=== PATIENT | male | born 1990 | race Caucasian/White ===

== ENCOUNTER 2018-06-22 18:54 | Emergency (ER) | payer SELFPAY ==
[~2018-06-22] VITALS: Ht 182.9 cm; Wt 84.8 kg
--- OUTSIDE RECORDS SUMMARY | 2018-06-22 18:57 | XMS REPORT ---
Author PAULINA Garcia Organization [employer] Address Unknown Phone Unavailable Care Team Providers Care Remote Encoding Center Manager Name Role Phone PAULINA KELLEY CP Unavailable Allergies No Known Allergies Problems Problem Type Condition Code Onset Dates Condition Status Assessment Paranoid schizophrenia F20.0 Active Medications Medication Code System Code Instructions Start Date End Date Status Dosage Latuda [facility] [address]-92 40 MG Orally Once a day April 17, 2016 1 tablet with food Paroxetine HCl [facility] [address]-46 20 MG Orally Once a day April 17, 2016 1 tablet in the morning Seroquel [facility] [address]-18 300 MG Orally twice a day April 17, 2016 2 tablets Procedures Procedure Coding System Code Date Office Visit, Est Pt., Level 2 CPT-4 41423 April 17, 2016 Vital Signs Date/Time: April 17, 2016 Cardiac Monitoring Heart Rate 72 bpm Weight 108 lbs Height 72 in BMI 14.65 Index Blood Pressure Diastolic 70 mmHg Blood Pressure Systolic 112 mmHg Results No Known Results Summary Purpose [employer] Submission
--- OUTSIDE RECORDS SUMMARY | 2018-06-22 18:58 | XMS REPORT ---
Author Author PAULINA KELLEY [facility] Address [facility] [place] [address] Care Team Providers Care Hydraulic Chair Assembler Name Role Phone PAULINA KELLEY Unavailable PROBLEMS Type Condition ICD9-CM Code [id number] Code Onset Dates Condition Status SNOMED Code Problem Mood disorder F39 Active [id number] ALLERGIES Unknown Allergies SOCIAL HISTORY No smoking Hx information available PLAN OF CARE VITAL SIGNS MEDICATIONS Medication Instructions Dosage Frequency Start Date End Date Duration Status Seroquel 300 MG Orally twice a day 2 tablets 12h 08 Jul, 2016 Active RESULTS No Results PROCEDURES No Known procedures IMMUNIZATIONS No Known Immunizations
--- OUTSIDE RECORDS SUMMARY | 2018-06-22 18:58 | XMS REPORT ---
Author PAULINA Garcia Organization [employer] Address Unknown Phone Unavailable Care Team Providers Care Aircraft Engine Dismantler Name Role Phone PAULINA KELLEY CP Unavailable Allergies No Known Allergies Problems Problem Type Condition Code Onset Dates Condition Status Assessment Mood disorder F39 Active Problem Mood disorder F39 Active Medications Medication Code System Code Instructions Start Date End Date Status Dosage Seroquel [facility] NAMED [facility] [address]-70 300 MG Orally twice a day Jul 31, 2016 1 tablet at bedtime Latuda [facility] NAMED [facility] [address]-21 40 MG Orally Once a day Jul 31, 2016 1 tablet with food Procedures Procedure Coding System Code Date Office Visit, Est Pt., Level 2 CPT-4 32738 Jul 31, 2016 Vital Signs Date/Time: Jul 31, 2016 Cardiac Monitoring Heart Rate 80- bpm Weight 218 lbs Height 72 in BMI 29.56 Index Blood Pressure Diastolic 80 mmHg Blood Pressure Systolic 138 mmHg Results No Known Results Summary Purpose [employer] Submission
--- OUTSIDE RECORDS SUMMARY | 2018-06-22 18:58 | XMS REPORT ---
Author Author PAULINA KELLEY [facility] Address [facility] [place] [address] Care Team Providers Care Rn Iv Therapy Name Role Phone PAULINA KELLEY Unavailable PROBLEMS Type Condition ICD9-CM Code [id number] Code Onset Dates Condition Status SNOMED Code Problem Mood disorder F39 Active [id number] ALLERGIES Unknown Allergies SOCIAL HISTORY No smoking Hx information available PLAN OF CARE VITAL SIGNS MEDICATIONS Medication Instructions Dosage Frequency Start Date End Date Duration Status Effexor XR 37.5 MG Orally Once a day 1 capsule with food 24h Aug, 30 day(s) Active RESULTS No Results PROCEDURES No Known procedures IMMUNIZATIONS No Known Immunizations
--- OUTSIDE RECORDS SUMMARY | 2018-06-22 18:58 | XMS REPORT ---
Author Author DEIRDRE ESTRADA [facility] Address Unknown Care Team Providers Care Slab Tripper Name Role Phone DEIRDRE ESTRADA Unavailable PROBLEMS Type Condition ICD9-CM Code [id number] Code Onset Dates Condition Status SNOMED Code Problem Mood disorder F39 Active [id number] ALLERGIES Substance Reaction Event Type Date Status N.K.D.A. Unknown Non Drug Allergy Aug, Unknown SOCIAL HISTORY No smoking Hx information available PLAN OF CARE Activity Details Follow Up prn Reason:pt will call VITAL SIGNS Blood pressure systolic 77 mmHg 2016-08-24 Blood pressure diastolic 40 mmHg 2016-08-24 MEDICATIONS Medication Instructions Dosage Frequency Start Date End Date Duration Status Latuda 40 MG Orally Once a day 1 tablet with food 24h Jul, 30 day(s) Active Motrin IB 800 Orally every 6 hrs 1 tablet as needed 6h 5 days Active Seroquel 300 MG Orally twice a day 1 tablet at bedtime 12h Jul, 30 day(s) Active RESULTS No Results PROCEDURES Procedure Date Ordered Related Diagnosis Body Site LTD ORAL EVALUATION - PROBLEM FOCUS Aug 24, 2016 INTRAORL-PERIAPICAL 1 FILM [id number] Aug 24, 2016 SURG REMOVAL ERUPTED TOOTH Aug 24, 2016 BITEWING - SINGLE FILM Aug 24, 2016 Billing Notes on claim Aug 24, 2016 IMMUNIZATIONS No Known Immunizations
--- OUTSIDE RECORDS SUMMARY | 2018-06-22 18:58 | XMS REPORT ---
Author PAULINA Garcia Organization [employer] Address Unknown Phone Unavailable Care Team Providers Care Employment Clerk Name Role Phone PAULINA KELLEY CP Unavailable Allergies No Known Allergies Problems No Known Problems Medications No Known Medications Results No Known Results Summary Purpose [employer] Submission
[2018-06-22] MEDS ORDERED: LACTATED RINGERS 1,000 ML IV ONE (19:07)
[2018-06-22 19:15] LABS: BASOPHILS % (AUTO) 0 % (0-10); EOSINOPHILS # (AUTO) 0.1 10^3/uL (0.0-0.3); EOSINOPHILS % (AUTO) 1 % (0-10); HEMATOCRIT 44 % (40-54); HEMOGLOBIN 15.3 G/DL (13.3-17.7); LYMPHOCYTES # (AUTO) 1.9 X 10^3 (1.0-4.0); LYMPHOCYTES % (AUTO) 17 % (12-44); MEAN CORPUSCULAR HEMOGLOBIN 32 PG (25-34); MEAN CORPUSCULAR HGB CONC 35 G/DL (32-36); MEAN CORPUSCULAR VOLUME 91 FL (80-99); MEAN PLATELET VOLUME 10.9 FL (7.4-10.4); MONOCYTES # (AUTO) 0.9 X 10^3 (0.0-1.0); MONOCYTES % (AUTO) 8 % (0-12); NEUTROPHILS # (AUTO) 8.2 X 10^3 (1.8-7.8); NEUTROPHILS % (AUTO) 74 % (42-75); PLATELET COUNT 322 10^3/uL (130-400); RED BLOOD COUNT 4.83 10^6/uL (4.35-5.85); RED CELL DISTRIBUTION WIDTH 13.7 % (10.0-14.5)
--- NOTE | 2018-06-22 19:21 | ED Psychosocial ---
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 PT HAS EXTENSIVE PSYCH HISTORY AND HAS HAD MULTIPLE PSYCH ADMITS--PT STATES " TOO MANY" --MORE THAN 5 ADMITS, BUT CANNOT STATE HOW MANY TIMES HE HAS BEEN ADMITTED. HE STATES LAST ADMIT WAS AT [place] AND WAS OVER A YEAR AGO. PT STATES HE QUIT TAKING ALL OF HIS PSYCH MEDS OVER 6 MONTHS AGO AND HAS NOT FOLLOWED UP WITH [facility] FOR OVER 6 MONTHS. STATES HE IS SUPPOSED TO BE ON SEROQUEL, EFFEXOR AND THORAZINE. PT HAS OVERDOSED IN THE PAST, BUT DENIES TAKING ANY PILLS OF ANY KIND FOR A LONG TIME EMS REPORT THAT PT TOLD THEM THAT HE AND HIS GIRLFRIEND BROKE UP RECENTLY AND HE HAS BEEN DEPRESSED ABOUT THAT HE DENIED SUICIDAL THOUGHTS TO EMS ON DIRECT QUESTIONING BY ME, TO WHAT HE WAS DOING, HE STATES "JUST DON'T WANT TO THINK ABOUT IT" ON DIRECT QUESTIONING BY ME, TO WHETHER HE WAS TRYING TO HARM HIMSELF, HE STATES "I DON'T KNOW" UNABLE TO OBTAIN ANY OTHER INFORMATION FROM PT PT LATER STATES "MY ANXIETY IS THROUGH THE ROOF, I'M THIRSTY" --HOWEVER, PT IS WITH VERY FLAT AFFECT AND SOMEWHAT LETHARGIC. PT HAS A HEMATOMA AND MINOR ABRASION TO RIGHT FOREHEAD--PT WAS UNAWARE THAT HE HAD IT, AND HAS NO IDEA WHAT MIGHT HAVE HAPPENED. PCP: GLORY JAY Allergies and Home Medications Allergies Coded Allergies: No Known Drug Allergies (Unverified , 06/22/18) Patient Home Medication List Home Medication List Reviewed: Yes Review of Systems Constitutional: no symptoms reported EENTM: no symptoms reported Respiratory: no symptoms reported; No short of breath Cardiovascular: no symptoms reported; No chest pain Gastrointestinal: no symptoms reported Genitourinary: no symptoms reported Musculoskeletal: see HPI Skin: see HPI Psychiatric/Neurological: See HPI, Anxiety, Depressed, Emotional Problems; Denies Headache, Denies Numbness, Denies Paresthesia, Denies Seizure, Denies Weakness Past [id number]-Jhmnwk Hx Patient Social History Alcohol Use: Denies Use Recreational Drug Use: Yes (METH--DENIES IV USE AND CLAIMS NO USE SINCE 2009, PER PT 06/22/18) Smoking Status: Current Everyday Smoker (1 PPD) Type Used: Cigarettes (1 PPD) Past Medical History Surgeries: No Respiratory: No Cardiac: No Neurological: No Genitourinary: No Gastrointestinal: No Musculoskeletal: No Endocrine: No HEENT: No Cancer: No Psychosocial: Yes Sleep Difficulties, Anxiety, Suicide Attempts, Depression Integumentary: No Blood Disorders: No Physical Exam Vital Signs - First Documented 06/22/18 18:57 Temp 97.7 Pulse 91 Resp 13 B/P (MAP) 147/88 (107) Pulse Ox 100 O2 Delivery Room Air Capillary Refill : Height, Weight, BMI Height: '" Weight: lbs. oz. kg; BMI Method: General Appearance: WD/WN, no apparent distress, other (FLAT AFFECT, SOMEWHAT LETHARGIC, FREQUENT VERY DEEP BREATHS AND RANDOM BODY MOVEMENTS. REEKS OF CIGARETTES. ) HEENT: PERRL/EOMI, normal ENT inspection, TMs normal, pharynx normal, other ( MODERATE SIZED HEMATOMA WITH MINOR SUPERFICIAL ABRASION TO RIGHT FOREHEAD. ) Neck: non-tender, full range of motion, supple, normal inspection Respiratory: normal breath sounds, no respiratory distress, no accessory muscle use Cardiovascular: normal peripheral pulses, regular rate, rhythm, no murmur Peripheral Pulses: 2+ Dorsalis Pedis (R), 2+ Left Dors-Pedis (L) Gastrointestinal: non tender, soft Extremities: normal range of motion, non-tender, normal inspection, no pedal edema, no calf tenderness, normal capillary refill Neurologic/Psychiatric: career representative II-XII nml as tested, no motor/sensory deficits, alert, oriented x 3, depressed affect (FLAT AFFECT. ) Appearance/Memory: disheveled, impaired recent memory (ABOUT CURRENT ISSUES ) Behavior/Eye Contact: cooperative, normal speech, avoids eye contact Thoughts/Hallucinations: no apparent hallucination Skin: normal color, warm/dry, ecchymosis Progress/Results/Core Measures Results/Orders Lab Results Laboratory Tests Test 06/22/18 18:58 06/22/18 19:40 Range/Units White Blood Count 11.0 4.3-11.0 10^3/uL Red Blood Count 4.83 4.35-5.85 10^6/uL Hemoglobin 15.3 13.3-17.7 G/DL Hematocrit 44 40-54 % Mean Corpuscular Volume 91 80-99 FL Mean Corpuscular Hemoglobin 32 25-34 PG Mean Corpuscular Hemoglobin Concent 35 32-36 G/DL Red Cell Distribution Width 13.7 10.0-14.5 % Platelet Count 322 130-400 10^3/uL Mean Platelet Volume 10.9 H 7.4-10.4 FL Neutrophils (%) (Auto) 74 42-75 % Lymphocytes (%) (Auto) 17 12-44 % Monocytes (%) (Auto) 8 0-12 % Eosinophils (%) (Auto) 1 0-10 % Basophils (%) (Auto) 0 0-10 % Neutrophils # (Auto) 8.2 H 1.8-7.8 X 10^3 Lymphocytes # (Auto) 1.9 1.0-4.0 X 10^3 Monocytes # (Auto) 0.9 0.0-1.0 X 10^3 Eosinophils # (Auto) 0.1 0.0-0.3 10^3/uL Basophils # (Auto) 0.0 0.0-0.1 10^3/uL Sodium Level 145 135-145 MMOL/L Potassium Level 3.0 L 3.6-5.0 MMOL/L Chloride Level 109 H 98-107 MMOL/L Carbon Dioxide Level 24 21-32 MMOL/L Anion Gap 12 5-14 MMOL/L Blood Urea Nitrogen 6 L 7-18 MG/DL Creatinine 1.05 0.60-1.30 MG/DL Estimat Glomerular Filtration Rate > 60 BUN/Creatinine Ratio 6 Glucose Level 101 70-105 MG/DL Calcium Level 9.6 8.5-10.1 MG/DL Corrected Calcium 8.5-10.1 MG/DL Magnesium Level 2.7 H 1.8-2.4 MG/DL Total Bilirubin 0.6 0.1-1.0 MG/DL Aspartate Amino Transf (AST/SGOT) 21 5-34 U/L Alanine Aminotransferase (ALT/SGPT) 22 0-55 U/L Alkaline Phosphatase 66 40-136 U/L Total Protein 7.6 6.4-8.2 GM/DL Albumin 4.7 H 3.2-4.5 GM/DL TSH [place] Testing 0.65 0.35-4.94 UIU/ML Salicylates Level < 5.0 L 5.0-20.0 MG/DL Acetaminophen Level < 10 L 10-30 UG/ML Serum Alcohol < 10 <10 MG/DL Urine Color YELLOW Urine Clarity CLEAR Urine pH 7 5-9 Urine Specific Olive 1.005 L 1.016-1.022 Urine Protein NEGATIVE NEGATIVE Urine Glucose (UA) NEGATIVE NEGATIVE Urine Ketones NEGATIVE NEGATIVE Urine Nitrite NEGATIVE NEGATIVE Urine Bilirubin NEGATIVE NEGATIVE Urine Urobilinogen NORMAL NORMAL MG/DL Urine Leukocyte Esterase NEGATIVE NEGATIVE Urine RBC (Auto) NEGATIVE NEGATIVE Urine RBC NONE /HPF Urine WBC RARE /HPF Urine Crystals NONE /LPF Urine Bacteria NEGATIVE /HPF Urine Casts NONE /LPF Urine Mucus NEGATIVE /LPF Urine Culture Indicated NO Urine Opiates Screen NEGATIVE NEGATIVE Urine Oxycodone Screen NEGATIVE NEGATIVE Urine Methadone Screen NEGATIVE NEGATIVE Urine Propoxyphene Screen NEGATIVE NEGATIVE Urine Barbiturates Screen NEGATIVE NEGATIVE Ur Tricyclic Antidepressants Screen NEGATIVE NEGATIVE Urine Phencyclidine Screen NEGATIVE NEGATIVE Urine Amphetamines Screen NEGATIVE NEGATIVE Urine Methamphetamines Screen NEGATIVE NEGATIVE Urine Benzodiazepines Screen NEGATIVE NEGATIVE Urine Cocaine Screen NEGATIVE NEGATIVE Urine Cannabinoids Screen NEGATIVE NEGATIVE My Orders Orders - HORTENSIA,LIANE K DO Ua Culture If Indicated (06/22/18 19:07) Thyroid Analyzer (06/22/18 19:07) Drug Screen Stat (Urine) (06/22/18 19:07) Cbc With Automated Diff (06/22/18 19:07) Comprehensive Metabolic Panel (06/22/18 19:07) Alcohol (06/22/18 19:07) Acetaminophen (06/22/18 19:07) Salicylate (06/22/18 19:07) Ekg Tracing (06/22/18 19:07) Monitor-Rhythm Ecg Trace Only (06/22/18 19:07) Saline Lock/Iv-Start (06/22/18 19:07) Lactated Ringers (Lr 1000 Ml Iv Solution (06/22/18 19:07) Ct Head/Cervical Spine Wo (06/22/18 19:07) Chest Pa/Lat (2 View) (06/22/18 19:07) Potassium Chloride (Tablet) (Klor Con Ta (06/22/18 20:15) Magnesium (06/22/18 20:43) Potassium Chloride (Tablet) (Klor Con Ta (06/22/18 20:20) Potassium Chloride (Tablet) (Klor Con Ta (06/22/18 20:24) Medications Given in ED Current Medications Medications Dose Ordered Sig/[place] Route Start Time Stop Time Status Last Admin Dose Admin Lactated Ringer's 1,000 ml @ 0 mls/hr Q0M ONCE IV 06/22/18 19:07 06/22/18 19:12 DC 06/22/18 19:46 1,000 MLS/HR Potassium Chloride 30 meq ONCE ONCE PO 06/22/18 20:15 06/22/18 20:53 DC 06/22/18 20:28 30 MEQ Vital Signs/I&O 06/22/18 18:57 Temp 97.7 Pulse 91 Resp 13 B/P (MAP) 147/88 (107) Pulse Ox 100 O2 Delivery Room Air Progress Progress Note : Progress Note NO DETERIORATION IN PTS' CONDITION DURING ER STAY PT LESS LETHARGIC AND MORE TALKATIVE PT STATES HE FEELS BETTER--STATES THAT IT FEELS LIKE HIS LUNGS HAVE "CLEARED UP " ON DIRECT QUESTIONING, PT DENIES HAVING ANY THOUGHTS OF SELF HARM AND DENIES THAT HE WAS TRYING TO HARM HIMSELF EARLIER PT DECLINES MENTAL HEALTH EVALUATION PT STATES HE NEEDS TO BE ABLE TO GO TO WORK TOMORROW MORNING--WORKS AT [employer]. Initial ECG Impression Date: Jun 22, 2018 Initial ECG Impression Time: 19:15 Initial ECG Rate: 89 Initial ECG Rhythm: Normal Sinus Initial ECG Comparisson: No Previous ECG Available Diagnostic Imaging Comments CXR--NO ACUTE PROCESS, PER RADIOLOGIST REPORT AT 1940 CT HEAD/CERVICAL SPINE--NO ACUTE PROCESS, PER RADIOLOGIST REPORT @ 2003 Reviewed: Reviewed by Me Departure Impression Primary Impression: Huffing Additional Impressions: Depression Hypokalemia Disposition: 01 HOME, SELF-CARE Condition: Improved Departure-Patient Inst. Referrals: UNKNOWN (PCP/Family) Primary Care Physician Patient Instructions: ALCOHOL AND SUBSTANCE ABUSE, Depression, Adult (DC), Drug Abuse and Drug Addiction (DC) Add. Discharge Instructions: NO DRUGS OR ALCOHOL FOLLOW UP WITH [facility] THIS WEEK FOR FURTHER CARE--CALL IN AM FOR APPOINTMENT RETURN TO ER IF SYMPTOMS WORSEN YOU MAY ALSO CALL [phone] LIANE ALEXANDER DO Jun 22, 2018 19:21
[2018-06-22 19:30] LABS: ALANINE AMINOTRANSFERASE 22 U/L (0-55); ALBUMIN 4.7 GM/DL (3.2-4.5); ALKALINE PHOSPHATASE 66 U/L (40-136); BILIRUBIN,TOTAL 0.6 MG/DL (0.1-1.0); BUN/CREATININE RATIO 6; CALCIUM 9.6 MG/DL (8.5-10.1); CARBON DIOXIDE 24 MMOL/L (21-32); CHLORIDE 109 MMOL/L (98-107); CREATININE SERUM 1.05 MG/DL (0.60-1.30); GFR ESTIMATED > 60; GLUCOSE 101 MG/DL (70-105); SALICYLATE < 5.0 MG/DL (5.0-20.0); SODIUM 145 MMOL/L (135-145); TOTAL PROTEIN 7.6 GM/DL (6.4-8.2)
--- NOTE | 2018-06-22 19:37 | Diagnostic Imaging Report ---
INDICATION: Inhalation injury FINDINGS: The lungs are clear. There is no pneumothorax or pneumomediastinum. There is no free air beneath the diaphragms. No infiltrate, failure effusion, or pneumothorax. IMPRESSION: No acute appearing abnormality Dictated by: Dictated on workstation # [id number]
[2018-06-22 19:42] LABS: ACETAMINOPHEN < 10 UG/ML (10-30)
--- NOTE | 2018-06-22 19:48 | Diagnostic Imaging Report ---
PROCEDURE: CT head and CT cervical spine without contrast. TECHNIQUE: Multiple contiguous axial images were obtained through the brain and cervical spine without the use of intravenous contrast. Sagittal and coronal reformations through the cervical spine were then performed. INDICATION: Injury CT head: There is no hemorrhage, hydrocephalus, edema, mass, mass effect or evidence for elevated intracerebral pressures. Orbits, sinuses, and calvarium appeared nonacute. CT cervical spine: Cervical body heights are maintained. The alignment is anatomic. The disc spaces preserved. C5-C6 disc bulge results in at least mild canal stenosis. No fracture or paravertebral hemorrhage. Thoracic inlet and visualized pulmonary apices unremarkable. IMPRESSION: CT head: Negative CT cervical spine: Degenerative changes and disc bulge with at least mild canal stenosis C5-C6. No fracture or acute bony abnormality. Dictated by: Dictated on workstation # [id number]
[2018-06-22 19:50] LABS: TSH (THYROID ANALYZER) 0.65 UIU/ML (0.35-4.94)
[2018-06-22 19:55] LABS: BILIRUBIN,URINE NEGATIVE (NEGATIVE); CLARITY,URINE CLEAR; COLOR,URINE YELLOW; GLUCOSE, URINE (UA) NEGATIVE (NEGATIVE); KETONES,URINE NEGATIVE (NEGATIVE); LEUKOCYTE ESTERASE ,URINE NEGATIVE (NEGATIVE); NITRITE,URINE NEGATIVE (NEGATIVE); PH,URINE 7 (5-9); PROTEIN,URINE NEGATIVE (NEGATIVE); UROBILINOGEN,URINE NORMAL (NORMAL)
[2018-06-22 20:12] LABS: BACTERIA,URINE NEGATIVE /HPF; WBC,URINE RARE /HPF
[2018-06-22 20:13] LABS: AMPHETAMINE SCREEN, URINE NEGATIVE (NEGATIVE); BARBITURATE SCREEN URINE NEGATIVE (NEGATIVE); BENZODIAZEPINES SCREEN URINE NEGATIVE (NEGATIVE); CANNABINOID SCREEN, URINE NEGATIVE (NEGATIVE); COCAINE SCREEN URINE NEGATIVE (NEGATIVE); METHADONE STAT NEGATIVE (NEGATIVE); METHAMPHETAMINE SCREEN URINE S NEGATIVE (NEGATIVE); OPIATE SCREEN URINE NEGATIVE (NEGATIVE); OXYCODONE STAT NEGATIVE (NEGATIVE); PROPOXYPHENE STAT NEGATIVE (NEGATIVE); TRICYCLIC ANTIDEPRESSANTS SCRE NEGATIVE (NEGATIVE)
[2018-06-22] MEDS ORDERED: KCL 10 MEQ TAB (MICRO K) PO ONE ×3 (20:15→20:24)
[2018-06-22 21:40] VITALS: BP 147/104
== END 2018-06-22 21:46 | disposition home or self-care (01) ==
LOC: EDUNIT# 18:54 → ER 18:55
DX: F18.10 Inhalant abuse, uncomplicated (principal); E87.6 Hypokalemia; F41.9 Anxiety disorder, unspecified; F32.9 Major depressive disorder, single episode, unspecified; F17.210 Nicotine dependence, cigarettes, uncomplicated; Z91.5 Personal history of self-harm
CPT/HCPCS: 36415; 70450; 71046; 72125; 80053; 80306; 80320; 80329; 81000; 83735; 84443; 85025; 93005; 93041

== ENCOUNTER 2021-06-21 01:49 | Emergency (ER) | payer SELFPAY ==
[~2021-06-21] VITALS: Ht 182 cm; Wt 81.6 kg
[2021-06-21] MEDS ORDERED: diphenhydrAMINE 50 MG/ML INJ (BENADRYL) ONE (01:58)
[2021-06-21] MEDS ORDERED: LORazepam INJ 2 MG/ML (ATIVAN) VIAL ONE (01:59)
--- NOTE | 2021-06-21 02:09 | ED Psychosocial ---
General Stated Complaint: AMS,AGGITATED Source: police, EMS Exam Limitations: clinical condition (MARY MARRUFO MD) History of Present Illness Date Seen by Provider: Jun 21, 2021 Time Seen by Provider: 01:50 Initial Comments Patient is a 31-year-old male brought to the emergency department by EMS and police. He was picked up at his father's house, after his father called saying that the patient was tearing the place up. Reportedly the patient has a history of mental illness and was recently hospitalized at [facility]. Father called the police because the patient is reportedly not supposed to be there and was trespassing. EMS and PD report that the patient will not talk to them, very agitated. The only thing he will say on arrival is that he wants a drink of water. He also states that he is allergic to Haldol. He is obviously agitated with dystonic/jerking movements. Vital signs are stable. Patient will not participate in the HPI, review of systems, past medical family or social history. Review of systems unobtainable secondary to the patient's clinical condition. Timing/Duration: this evening Severity: severe (MARY MARRUFO MD) Allergies and Home Medications Allergies Coded Allergies: No Known Drug Allergies (Unverified , 06/22/18) Patient Home Medication List Home Medication List Reviewed: Yes (MARY MARRUFO MD) Bupropion HCl (Bupropion HCl) 75 Mg Tablet, 75 MG PO BID Prescribed by: SULEMA MENDES on 06/21/21 1520 Quetiapine Fumarate (Quetiapine Fumarate) 300 Mg Tablet, 300 MG PO BID Prescribed by: SULEMA MENDES on 06/21/21 1510 Review of Systems Constitutional: see HPI Review of systems unobtainable secondary to the patient's clinical condition (MARY MARRUFO MD) Past Vuhabga-Lfayis-Bjghky Hx Seasonal Allergies Seasonal Allergies: No (MARY MARRUFO MD) Past Medical History Surgeries: No Respiratory: No Cardiac: No Neurological: No Genitourinary: No Gastrointestinal: No Musculoskeletal: No Endocrine: No HEENT: No Cancer: No Psychosocial: Yes Sleep Difficulties, Anxiety, Suicide Attempts, Depression Integumentary: No Blood Disorders: No Adverse Reaction/Blood Tranf: Yes (MARY MARRUFO MD) Physical Exam Vital Signs - First Documented 06/21/21 01:51 Temp 36.9 Pulse 102 Resp 30 B/P (MAP) 135/70 (91) Pulse Ox 100 O2 Delivery Room Air (SULEMA GREGORY MD) Capillary Refill : (MARY MARRUFO MD) Height, Weight, BMI Height: 6'0" Weight: 187lbs. oz. 84.928747it; BMI Method:Stated General Appearance: WD/WN, severe distress (Agitated, jerking movements) HEENT: PERRL/EOMI, other (Extremely dry oral mucosa) Neck: normal inspection Respiratory: lungs clear, normal breath sounds, no respiratory distress Cardiovascular: regular rate, rhythm Gastrointestinal: soft, tenderness (Patient becomes a little bit more agitated and writhing around on the bed with palpation of the abdomen. Abdomen is nondistended. Normal bowel sounds. Soft.) Extremities: normal range of motion, no pedal edema Appearance/Memory: disheveled, impaired insight Behavior/Eye Contact: avoids eye contact, increased rate of speech (Gibberish), uncooperative Thoughts/Hallucinations: incoherent, other (appears to be responding to internal stimuli) Skin: normal color, warm/dry, other (Open draining wound over the top of the right kneecap. No fluctuance. Honey crusted; tender to palpation) (MARY MARRUFO MD) Progress/Results/Core Measures Results/Orders Lab Results Laboratory Tests Test 06/21/21 02:03 06/21/21 07:37 Range/Units White Blood Count 11.3 H 4.3-11.0 10^3/uL Red Blood Count 4.60 4.30-5.52 10^6/uL Hemoglobin 13.8 13.3-17.7 g/dL Hematocrit 41 40-54 % Mean Corpuscular Volume 89 80-99 fL Mean Corpuscular Hemoglobin 30 25-34 pg Mean Corpuscular Hemoglobin Concent 34 32-36 g/dL Red Cell Distribution Width 12.3 10.0-14.5 % Platelet Count 469 H 130-400 10^3/uL Mean Platelet Volume 9.5 9.0-12.2 fL Immature Granulocyte % (Auto) 0 % Neutrophils (%) (Auto) 71 42-75 % Lymphocytes (%) (Auto) 16 12-44 % Monocytes (%) (Auto) 11 0-12 % Eosinophils (%) (Auto) 2 0-10 % Basophils (%) (Auto) 0 0-10 % Neutrophils # (Auto) 8.0 H 1.8-7.8 10^3/uL Lymphocytes # (Auto) 1.8 1.0-4.0 10^3/uL Monocytes # (Auto) 1.2 H 0.0-1.0 10^3/uL Eosinophils # (Auto) 0.3 0.0-0.3 10^3/uL Basophils # (Auto) 0.0 0.0-0.1 10^3/uL Immature Granulocyte # (Auto) 0.0 0.0-0.1 10^3/uL Sodium Level 139 135-145 MMOL/L Potassium Level 3.4 L 3.6-5.0 MMOL/L Chloride Level 102 98-107 MMOL/L Carbon Dioxide Level 19 L 21-32 MMOL/L Anion Gap 18 H 5-14 MMOL/L Blood Urea Nitrogen 23 H 7-18 MG/DL Creatinine 1.21 0.60-1.30 MG/DL Estimat Glomerular Filtration Rate 69 BUN/Creatinine Ratio 19 Glucose Level 85 70-105 MG/DL Calcium Level 10.0 8.5-10.1 MG/DL Corrected Calcium 9.8 8.5-10.1 MG/DL Total Bilirubin 0.7 0.1-1.0 MG/DL Aspartate Amino Transf (AST/SGOT) 33 5-34 U/L Alanine Aminotransferase (ALT/SGPT) 28 0-55 U/L Alkaline Phosphatase 65 40-136 U/L Total Protein 7.6 6.4-8.2 GM/DL Albumin 4.3 3.2-4.5 GM/DL Salicylates Level < 5.0 L 5.0-20.0 MG/DL Acetaminophen Level < 10 L 10-30 UG/ML Serum Alcohol < 10 <10 MG/DL Urine Opiates Screen NEGATIVE NEGATIVE Urine Oxycodone Screen NEGATIVE NEGATIVE Urine Methadone Screen NEGATIVE NEGATIVE Urine Propoxyphene Screen NEGATIVE NEGATIVE Urine Barbiturates Screen NEGATIVE NEGATIVE Ur Tricyclic Antidepressants Screen NEGATIVE NEGATIVE Urine Phencyclidine Screen NEGATIVE NEGATIVE Urine Amphetamines Screen POSITIVE H NEGATIVE Urine Methamphetamines Screen POSITIVE H NEGATIVE Urine Benzodiazepines Screen POSITIVE H NEGATIVE Urine Cocaine Screen NEGATIVE NEGATIVE Urine Cannabinoids Screen POSITIVE H NEGATIVE (SULEMA GREGORY MD) My Orders Orders - SULEMA GREGORY MD Olanzapine Orally Dissolve Tab (Zyprexa (06/21/21 06:45) Olanzapine Orally Dissolve Tab (Zyprexa (06/21/21 06:43) General/Regular (06/21/21 Breakfast) Quetiapine Immediate Release (Seroquel I (06/21/21 15:15) Bupropion Tablet (Wellbutrin Tablet) (06/21/21 15:05) (SULEMA GREGORY MD) Medications Given in ED (SULEMA GRGEORY MD) Vital Signs/I&O (SULEMA GREGORY MD) Progress Progress Note #1: Time: 03:42 Progress Note Patient reevaluated, seems to be resting. Not "sober" yet. A little jittery when stimulated. Vital signs remained stable. Progress Note #2: Time: 06:00 Progress Note re-checked, HR down to the 40's. systolic BP 105. sats good. Patient clinically looks better. is not as "twitchy" and jerky in movements. still not "sober" enough to clear from a medical standpoint. Passing care to Dr Cid at shift change with discharge pending. (MARY MARRUFO MD) Progress Note #1: Time: 06:25 Progress Note I assumed care of this patient from Dr. Marrufo at shift change. He was arousable from sleep but rather somnolent and cannot carry on a conversation. We are going to let him sleep a bit longer and continue monitoring. Progress Note #2: Time: 07:16 Progress Note Patient awoke and became moderately agitated. He is not aggressive or threatening but pulled his IV out and is extremely fidgety. He cannot communicate in a meaningful manner or formulate coherent sentences. He was given Zyprexa 5 mg sublingually. We will monitor the effect. Progress Note #3: Progress Note This patient exhibited gradual improvement in his functional and cognitive capacities. He was eventually able to carry on a conversation. I was ultimately able to discern that he has a patient case manager named Aleksander Baker at the [facility] in [place], [place]. I reached out to him and a director at the [facility]. They inform me that he has basically exhausted his resources there and has been noncompliant. There are some services he could still access if he were in their catchment area. However, since he is not in her catchment area and they do not have the means to get him there, he cannot receive their immediate assistance. I spoke at length with the patient's mother as well. She states she cannot directly house him or physically support him due to the risk that imposes on the household since she is the legal guardian for her grandson. After making numerous phone calls and having multiple long conversations, I ultimately discharged the patient. Prior to discharge I tried again to contact his mother to see if she could transport him back to [place] or find someone who could do so. The patient did not know of any other resources to try. I eventually did hear back from his mother after he was discharged. She intended to pick him up and take him to [address] [place] [address] (a recovery house) in [place], [place]. Fortunately the patient was still in the waiting room and he was instructed to stay there until she picked him up. In my conversations with his mother, she also corrected the prior information regarding admission to mental health institutions or [facility]. He actually had been in carcerated at the [facility] and was released earlier this month. Patient informed me that he did not have his medications, and the [facility] stated he had missed his medication appointment with them. I gave him a dose of Seroquel 200 mg and bupropion 75 mg based on his prior filling. I confirmed with Villela Camacho in [place], [place] what his prior doses were. He was taking Seroquel 300 mg 3 times daily and bupropion 75 mg twice daily. I did not start him out on such high doses but I did provide a prescription for Seroquel 300 mg twice a day and did replace the bupropion 75 mg twice a day. Mother was updated when she called back. Patient was functional and ambulatory at the time of discharge. I did specifically ask him about suicidal or homicidal ideation. He did not express any suicidal or homicidal thoughts or plans. He stated "I just need my medications". (SULEMA GREGORY MD) Initial ECG Impression Date: Jun 21, 2021 Initial ECG Impression Time: 02:25 Initial ECG Rate: 80 Initial ECG Rhythm: Normal Sinus Initial ECG Intervals: Normal Initial ECG Impression: Normal (MARY MARRUFO MD) Departure Impression Primary Impression: Altered mental status Qualified Codes: R41.0 - Disorientation, unspecified Additional Impressions: Polysubstance abuse Schizophrenia Qualified Codes: F20.9 - Schizophrenia, unspecified Homeless Disposition: 01 HOME, SELF-CARE Condition: Stable Departure-Patient Inst. Decision time for Depature: 15:06 (SULEMA GREGORY MD) Referrals: NO,LOCAL PHYSICIAN (PCP/Family) Primary Care Physician Patient Instructions: Schizophrenia, Drug Abuse and Drug Addiction (DC) Add. Discharge Instructions: Start back on your medications. Reestablish connection with the [facility] in [place] as soon as possible. Do not use any illicit substances such as marijuana or methamphetamine as this will worsen your mental health diagnoses. Call with questions or concerns. Return to the ER if you have worsening symptoms. Scripts Bupropion HCl (Bupropion HCl) 75 Mg Tablet 75 MG PO BID for Smoking Cessation, #20 TAB Prov: SULEMA GREGORY MD 06/21/21 Quetiapine Fumarate (Quetiapine Fumarate) 300 Mg Tablet 300 MG PO BID, #20 TAB Prov: SULEMA GREGORY MD 06/21/21 MARY MARRUFO MD Jun 21, 2021 02:09 SULEMA GREGORY MD Jun 21, 2021 06:30
[2021-06-21] MEDS ORDERED: LORazepam INJ 2 MG/ML (ATIVAN) VIAL IVP ONE (02:15)
[2021-06-21] MEDS ORDERED: diphenhydrAMINE 50 MG/ML INJ (BENADRYL) IVP ONE (02:15)
[2021-06-21 02:16] LABS: BASOPHILS % (AUTO) 0 % (0-10); EOSINOPHILS # (AUTO) 0.3 10^3/uL (0.0-0.3); EOSINOPHILS % (AUTO) 2 % (0-10); HEMATOCRIT 41 % (40-54); HEMOGLOBIN 13.8 g/dL (13.3-17.7); LYMPHOCYTES # (AUTO) 1.8 10^3/uL (1.0-4.0); LYMPHOCYTES % (AUTO) 16 % (12-44); MEAN CORPUSCULAR HEMOGLOBIN 30 pg (25-34); MEAN CORPUSCULAR HGB CONC 34 g/dL (32-36); MEAN CORPUSCULAR VOLUME 89 fL (80-99); MEAN PLATELET VOLUME 9.5 fL (9.0-12.2); MONOCYTES # (AUTO) 1.2 10^3/uL (0.0-1.0); MONOCYTES % (AUTO) 11 % (0-12); NEUTROPHILS % (AUTO) 71 % (42-75); PLATELET COUNT 469 10^3/uL (130-400); WHITE BLOOD COUNT 11.3 10^3/uL (4.3-11.0)
[2021-06-21 02:20] LABS: ALBUMIN 4.3 GM/DL (3.2-4.5); CHLORIDE 102 MMOL/L (98-107); POTASSIUM 3.4 MMOL/L (3.6-5.0); SODIUM 139 MMOL/L (135-145)
[2021-06-21 02:23] LABS: GLUCOSE 85 MG/DL (70-105); TOTAL PROTEIN 7.6 GM/DL (6.4-8.2)
[2021-06-21 02:24] LABS: CARBON DIOXIDE 19 MMOL/L (21-32)
[2021-06-21 02:25] LABS: BILIRUBIN,TOTAL 0.7 MG/DL (0.1-1.0)
[2021-06-21 02:26] LABS: ALKALINE PHOSPHATASE 65 U/L (40-136); CREATININE SERUM 1.21 MG/DL (0.60-1.30); GFR ESTIMATED 69
[2021-06-21 02:28] LABS: BUN/CREATININE RATIO 19
[2021-06-21 02:29] LABS: SALICYLATE < 5.0 MG/DL (5.0-20.0)
[2021-06-21 02:30] LABS: ALANINE AMINOTRANSFERASE 28 U/L (0-55)
[2021-06-21 02:31] LABS: ACETAMINOPHEN < 10 UG/ML (10-30)
[2021-06-21] MEDS ORDERED: OLANZapine 5 MG ODT (ZyPREXA ZYDIS) ONE (06:43)
[2021-06-21] MEDS ORDERED: OLANZapine 5 MG ODT (ZyPREXA ZYDIS) SL ONE (06:45)
[2021-06-21 07:55] LABS: AMPHETAMINE SCREEN, URINE POSITIVE (NEGATIVE); BARBITURATE SCREEN URINE NEGATIVE (NEGATIVE); BENZODIAZEPINES SCREEN URINE POSITIVE (NEGATIVE); CANNABINOID SCREEN, URINE POSITIVE (NEGATIVE); COCAINE SCREEN URINE NEGATIVE (NEGATIVE); METHADONE STAT NEGATIVE (NEGATIVE); METHAMPHETAMINE SCREEN URINE S POSITIVE (NEGATIVE); OPIATE SCREEN URINE NEGATIVE (NEGATIVE); OXYCODONE STAT NEGATIVE (NEGATIVE); PROPOXYPHENE STAT NEGATIVE (NEGATIVE); TRICYCLIC ANTIDEPRESSANTS SCRE NEGATIVE (NEGATIVE)
[2021-06-21] MEDS ORDERED: buPROPion 75 MG (WELLBUTRIN) TAB PO STA (15:05)
[2021-06-21] MEDS ORDERED: QUET300T19 PO (15:10)
[2021-06-21] MEDS ORDERED: QUEtiapine 200 MG (SEROquel) TAB IMMEDIATE RELEASE PO ONE (15:15)
[2021-06-21] MEDS ORDERED: BUPR-168 PO (15:20)
[2021-06-21 15:35] VITALS: BP 142/86
== END 2021-06-21 15:35 | disposition home or self-care (01) ==
LOC: EDUNIT# 01:49 → ER 01:52
DX: R41.82 Altered mental status, unspecified (principal); F19.10 Other psychoactive substance abuse, uncomplicated; F20.9 Schizophrenia, unspecified; F41.9 Anxiety disorder, unspecified; F32.9 Major depressive disorder, single episode, unspecified; Z59.0 Homelessness; Z79.899 Other long term (current) drug therapy
CPT/HCPCS: 80053; 80306; 85025; 93005; 99284; G0480 ×3; 36415; 80320; 80329